=== PATIENT | male | born 1965 | race Caucasian/White ===

== ENCOUNTER → 2023-04-21 | Outpatient (CLI) | payer BC ==
--- NOTE | 2023-04-22 07:35 | US ---
EXAMINATION TYPE: US scrotum with doppler. Grayscale and color Doppler Duplex imaging performed of annie salgado scrotum. DATE OF EXAM: 04/21/2023 COMPARISON: NONE CLINICAL INDICATION: Male, 57 years old with history of N50.89 OTHER SPECIFIED DISORDERS OF THE MALE GENITAL ORGANS; Lump right side. EXAM MEASUREMENTS: TESTICLES: Right Testicle: 3.3 x 2.9 x 3.1 cm anechoic area inferior .4 x .4 x .5 cm. Echogenic foci seen thr oughout. Left Testicle: 3.6 x 2.1 x 2.5 cm Echogenic foci seen throughout. EPIDIDYMIS HEAD: Right Epididymis: not well visualized. Left Epididymis: 1.0 x 1.6 x cm Doppler performed to assess for testicular vascularity; good bilateral color flow and waveforms are s een. There is no evidence of testicular torsion. Presence of hydroceles: no Presence of varicoceles: no IMPRESSION: 1. 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 This may be postinfectious in nature. There is inc reased incidence of malignancy however no intratesticular lesion is seen. 2. Extratesticular cystic lesion noted along the inferior margin of the right testicle.
== END | disposition home or self-care (01) ==
LOC: RADUSWWP 16:08
PROVIDERS: ATTEND Urology
DX: N44.2 Benign cyst of testis (principal); N50.89 Other specified disorders of the male genital organs
CPT/HCPCS: 76870; 93975

== ENCOUNTER 2025-01-24 05:59 | Day surgery (SDC) | payer BC ==
[2025-01-18 17:40] VITALS: BMI 36.6
[2025-01-24] MEDS ORDERED: LIDOCAINE 1% (10MG/ML) FOR IV START INTRADERMA PRN (06:09)
[2025-01-24] MEDS: IV FLUID CONTINUATION 1,000 ML IV ONE (06:51)
[2025-01-24 06:54] VITALS: RESP 16; TEMP 97.2
[2025-01-24] MEDS: LACTATED RINGERS 1,000 ML IV SCH (06:59)
[2025-01-24] MEDS ORDERED: PROPOFOL 10 MG/ML 20 ML VIAL IV ONE (07:18)
[2025-01-24] MEDS ORDERED: LIDOCAINE 1% INJ 10MG/ML (20 ML MDV) ONE (07:18)
--- NOTE | 2025-01-24 07:41 | P.PCN ---
Date of Procedure: 01/24/25 Procedure(s) Performed: BRIEF HISTORY: Patient is a 59-year-old pleasant white male scheduled for an elective colonoscopy as a part of screening for colon cancer. PROCEDURE PERFORMED: Colonoscopy with snare polypectomy. PREOPERATIVE DIAGNOSIS: Screening for colon cancer. IV sedation per Anesthesia. PROCEDURE: After informed consent was obtained, the patient, was brought into the endoscopy unit. IV sedation was administered by Anesthesia under continuous monitoring. Digital rectal examination was normal. Initially the Olympus CF-160 flexible video colonoscope was then inserted in the rectum, gradually advanced into the cecum without any difficulty. Careful examination was performed as the scope was gradually being withdrawn. Ileocecal valve and the appendiceal orifice were visualized and appeared normal. Prep was excellent. Mucosa of the cecum, ascending colon, transverse colon, descending colon, appeared normal. The sigmoid colon there was a 5 mm sessile polyp removed by cold snare polypectomy. Rest of the sigmoid colon, and rectum appeared normal. Scattered diffuse diverticulosis. Retroflexion was performed in the rectum and no lesions were seen. The patient tolerated the procedure well. IMPRESSION: 5 mm sigmoid colon polyp status post cold snare polypectomy Scattered diffuse diverticulosis. RECOMMENDATIONS: Findings of this examination were discussed with the patient as well as his family. He was advised to follow-up with the biopsy results. If the biopsy reveals adenoma he can have repeat colonoscopy in 5 years..
[2025-01-24 08:03] VITALS: BP 137/94; PULSE 65
== END 2025-01-24 08:17 | disposition home or self-care (01) ==
LOC: ORWHC2ENDO 05:59
PROVIDERS: ATTEND Internal Medicine Gastroenterology
DX: Z12.11 Encounter for screening for malignant neoplasm of colon (principal); K63.5 Polyp of colon; K57.30 Diverticulosis of large intestine without perforation or abscess without bleeding; J44.9 Chronic obstructive pulmonary disease, unspecified; E66.01 Morbid (severe) obesity due to excess calories
CPT/HCPCS: 45385; 88305; J2003; J2704